=== PATIENT | female | born 1960 ===

== ENCOUNTER → 2016-10-18 | Outpatient (CLI) | payer OTHER | END | disposition home or self-care (01) | LOC: RADUSWWP 13:57 | PROVIDERS: ATTEND Family Medicine | DX: R68.89 Other general symptoms and signs (principal) | CPT/HCPCS: 93923 ==

== ENCOUNTER → 2018-12-27 | Outpatient (CLI) | payer OTHER ==
--- NOTE | 2018-12-27 09:03 | XR ---
"Cervical spine HISTORY: Neck pain 5 views of the cervical spine No comparisons There is abnormal apical increased density in the left upper lobe, there is tracheal deviation toward the left upper hemithorax. There is no significant foraminal encroachment on oblique views. Cervical vertebral bodies show prese rved height and alignment. Loss of disc height present at C4-5, there is associated spondylosis. Some facet arthropathy changes are present. Prevertebral soft tissues are normal. IMPRESSION: Possible left upper lobe mass or apical scarring. Correlate with prior chest x-rays if av ailable, consider chest CT for better evaluation. Degenerative disc disease and facet arthropathy. A Yellow level critical message alert has been initiated for Grupo Streeter MD via the Ning 36 0 | Critical Results System on 12/27/2018 9:00 AM. This message alert has been sent to Grupo Streeter MD via the preferences provided by the clinician for the receipt of Radiology Critical Findings. [facility] – [place] [id number]."
== END | disposition home or self-care (01) ==
LOC: RADXRMAIN 08:25
PROVIDERS: ATTEND Family Medicine
DX: M50.30 Other cervical disc degeneration, unspecified cervical region (principal); M46.92 Unspecified inflammatory spondylopathy, cervical region
CPT/HCPCS: 72050

== ENCOUNTER → 2018-12-30 | Outpatient (CLI) | payer OTHER ==
--- NOTE | 2018-12-30 16:19 | CT ---
EXAMINATION TYPE: CT chest w con DATE OF EXAM: 12/30/2018 COMPARISON: None at this location HISTORY: Abnormal cxr. CT DLP: 263 mGycm, Automated exposure control for dose reduction was used. CONTRAST: Performed injected with 100 mL of Isovue M300. TECHNIQUE: Axial images were obtained at 5 mm thick sections. Reconstructed images are reviewed on [employer] computer in the coronal plane. FINDINGS: Portion of the thyroid visualized is normal. Mediastinum shifted to the left. Large apical thickening is present on the left. Some cavitation may be present in the anterior left. Some scarring appears to be in the right apex. Correlate with the surgical history. A suspicious spiculated density is in the left upper lung field measuring 0.5 cm. Series 5 image 47. Granulomas at the left lung base. No enlarged mediastinal or hilar adenopathy is evident. The ascending aorta diameter at the level o f the main pulmonary artery is 3.0 cm. The main pulmonary artery diameter at the bifurcation is 2.[address] sections are obtained through the upper abdomen. Right kidney is not within the field of v iew. IMPRESSIONS: 1. Left apical thickening with apparent cavitation. Spiculated 0.5 cm nodules in the left upper lung field. Findings are suspicious for neoplasm. Additional workup is recommended. 2. Suspected left apical mass is contributed to mediastinal shift to the left. Correlate with patient 's surgical history.
== END | disposition home or self-care (01) ==
LOC: RADCTMAIN 13:50
PROVIDERS: ATTEND Family Medicine
DX: J98.4 Other disorders of lung (principal); R91.1 Solitary pulmonary nodule
CPT/HCPCS: 71260; Q9967

== ENCOUNTER → 2019-01-10 | Outpatient (CLI) | payer OTHER ==
--- NOTE | 2019-01-13 07:44 | PE ---
EXAMINATION TYPE: PET CT fusion skull to thigh DATE OF EXAM: 01/10/2019 COMPARISON: CT chest 12/30/2018 Prior PET/CT: None HISTORY: Chest mass TECHNIQUE: Following the intravenous administration of 12.85 mCi of F-18 FDG, whole body images are performed from the skull base to the midthigh. Images are reviewed on the computer in the coronal, a xial, and sagittal planes. Reconstructed rotating images are created on independent workstation and reviewed on the computer. A localization and attenuation correction CT is performed in conjunction with the PET scan. DLP: 173.36 mGycm SCAN: Initial Blood glucose: 70 mg/dL Average Mediastinum SUV: 1.44 Average Liver SUV: 1.84 FINDINGS: NECK: No abnormal uptake THORAX: Suspicious uptake in the left apical mass is not evident. No underlying focal uptake is evide nt. No mediastinal or hilar adenopathy with increased uptake is evident. SUV value averages 1.36 ABDOMEN: No abnormal uptake PELVIS: No abnormal uptake OSSEOUS STRUCTURES: No abnormal uptake LOCALIZATION CT: Left apical masslike areas evident. There is shift the mediastinum to the left. Calc ified lymph nodes at the left hilar region. COMPARISON: Findings are stable from CT examination 12/30/2018 IMPRESSION: 1. Suspicious intense uptake to suggest progressive neoplasm is not evident. Milder uptake could sugg est an inflammatory process. Consider atypical forms such as mycobacterium avium and changes from pul monary fibrosis.
== END | disposition home or self-care (01) ==
LOC: RADPETMAIN 13:53
PROVIDERS: ATTEND Family Medicine
DX: R91.8 Other nonspecific abnormal finding of lung field (principal); R93.89 Abnormal findings on diagnostic imaging of other specified body structures; Z86.11 Personal history of tuberculosis
CPT/HCPCS: 78815; A9552

== ENCOUNTER → 2020-01-22 | Outpatient (CLI) | payer OTHER ==
[2020-01-22 17:01] LABS: Basophils % (A) 1 %; Eosinophils % (A) 0 %; HCT 39.8 % (34.0-46.0); HGB 13.1 gm/dL (11.4-16.0); Lymphocytes # (A) 1.2 k/uL (1.0-4.8); Lymphocytes % (A) 16 %; MCH 31.5 pg (25.0-35.0); MCHC 32.8 g/dL (31.0-37.0); MCV 96.2 fL (80.0-100.0); Mean Platelet Volume 7.4; Monocytes # (A) 0.3 k/uL (0-1.0); Monocytes % (A) 3 %; Neutrophils % (A) 79 %; Platelet Count 209 k/uL (150-450); RBC 4.14 m/uL (3.80-5.40); RDW 12.4 % (11.5-15.5); WBC 7.6 k/uL (3.8-10.6)
--- NOTE | 2020-01-22 19:41 | XR ---
PROCEDURE: XR sinus - 4V DATE AND TIME: 01/22/2020 4:51 PM CLINICAL INDICATION: PHH; R51.9; ears feel full, left greater than right. TECHNIQUE: Ruiz AP view, Jackson AP view, submentovertex, and lateral soft tissue technique images were obtained. COMPARISON: None FINDINGS: The sphenoid, frontal, ethmoid, and maxillary sinuses are clear. There is no focal skeletal findings. No focal soft tissue finding. No incidental findings. IMPRESSION: Negative examination.
[2020-01-23 01:20] LABS: African American GFR (CKD) 117.3 (60.0-200.0); Albumin 4.5 g/dL (3.80-4.90); Albumin/Globulin Ratio 1.8 (1.60-3.17); Anion Gap 9.1 mmol/L (4.00-12.00); Carbon Dioxide 26.9 mmol/L (21.6-31.8); Globulin 2.5 g/dL (1.6-3.3); Non-African American GFR(CKD) 101.2 (60.0-200.0); Potassium 3.9 mmol/L (3.5-5.5); Total Bilirubin 0.3 mg/dL (0.3-1.2)
== END | disposition home or self-care (01) ==
LOC: LABWHC1 16:27
PROVIDERS: ATTEND Family Medicine
DX: R51.9 Headache, unspecified (principal); R53.83 Other fatigue
CPT/HCPCS: 36415; 70220; 80053; 84443; 85025

== ENCOUNTER 2020-05-27 12:15 | Emergency (ER) | payer OTHER ==
[2020-05-27 12:52] VITALS: RESP 18; TEMP 98
[2020-05-27] MEDS ORDERED: SODIUM CHLORIDE 0.9% 1,000 ML IV STA (13:18)
[2020-05-27] MEDS ORDERED: ONDANSETRON 4 MG/2 ML VIAL IVP STA (13:18)
--- NOTE | 2020-05-27 13:20 | ED ---
Nausea/Vomiting/Diarrhea HPI - General Chief complaint: Nausea/Vomiting/Diarrhea Stated complaint: Covid Vaccine reaction, vomiting Time Seen by Provider: 05/27/20 13:12 Source: patient, RN notes reviewed Mode of arrival: ambulatory Limitations: no limitations - History of Present Illness Initial comments: She is a 60-year-old female that presents to emergency department with a three- day history of nausea and vomiting. She notes that she got the [employer] Covid vaccine prior to the nausea and vomiting. She had 4 bouts of vomiting over the last 3 days. She is currently a little bit nauseous. He noted that her emesis was nonbloody and nonbilious. She is able to hold food down and water mostly. She denied any pain or other complaints. He denied any chest pain shortness of breath diarrhea constipation fever fatigue chills weakness numbness tingling. - Related Data Allergies Allergy/AdvReac Type Severity Reaction Status Date / Time amoxicillin Allergy Rash/Hives Verified 05/27/20 12:52 Review of Systems ROS Statement: Those systems with pertinent positive or pertinent negative responses have been documented in the HPI. ROS Other: All systems not noted in ROS Statement are negative. Past Medical History Past Medical History: No Reported History History of Any Multi-Drug Resistant Organisms: None Reported Past Surgical History: No Surgical Hx Reported Past Psychological History: No Psychological Hx Reported Smoking Status: Never smoker Past Alcohol Use History: None Reported Past Drug Use History: None Reported General Exam Limitations: no limitations General appearance: alert, in no apparent distress Head exam: Present: atraumatic, normocephalic, normal inspection Eye exam: Present: normal appearance, PERRL, EOMI. Absent: scleral icterus, conjunctival injection, periorbital swelling ENT exam: Present: normal exam, mucous membranes moist Neck exam: Present: normal inspection. Absent: tenderness, meningismus, lymphadenopathy Respiratory exam: Present: normal lung sounds bilaterally. Absent: respiratory distress, wheezes, rales, rhonchi, stridor Cardiovascular Exam: Present: regular rate, normal rhythm, normal heart sounds. Absent: systolic murmur, diastolic murmur, rubs, gallop, clicks GI/Abdominal exam: Present: soft, normal bowel sounds. Absent: distended, tenderness, guarding, rebound, rigid Extremities exam: Present: normal inspection, full ROM, normal capillary refill. Absent: tenderness, pedal edema, joint swelling, calf tenderness Neurological exam: Present: alert, oriented X3, CN II-XII intact Psychiatric exam: Present: normal affect, normal mood Skin exam: Present: warm, dry, intact, normal color. Absent: rash Course Vital Signs 05/27/20 05/27/20 12:48 14:51 Temperature 98.0 F Pulse Rate 78 66 Respiratory 18 18 Rate Blood Pressure 146/79 123/72 O2 Sat by Pulse 100 100 Oximetry Medical Decision Making - Medical Decision Making 52-year-old female complaining of 3 day history of nausea and vomiting. Basic labs, 4 mg of Zofran ordered. Labs unremarkable. Case discussed with Dr. Torres, decided the patient could discharge home with conservative management. - Lab Data Result diagrams: 05/27/20 13:39 05/27/20 13:39 Lab Results 05/27/20 05/27/20 05/27/20 Range/Units 13:39 13:39 13:39 WBC 5.9 (3.8-10.6) k/uL RBC 4.23 (3.80-5.40) m/uL Hgb 13.2 (11.4-16.0) gm/dL Hct 38.7 (34.0-46.0) % MCV 91.6 (80.0-100.0) fL MCH 31.3 (25.0-35.0) pg MCHC 34.1 (31.0-37.0) g/dL RDW 12.2 (11.5-15.5) % Plt Count 264 (150-450) k/uL MPV 6.9 Neutrophils % 61 % Lymphocytes % 27 % Monocytes % 6 % Eosinophils % 3 % Basophils % 1 % Neutrophils # 3.6 (1.3-7.7) k/uL Lymphocytes # 1.6 (1.0-4.8) k/uL Monocytes # 0.3 (0-1.0) k/uL Eosinophils # 0.2 (0-0.7) k/uL Basophils # 0.1 (0-0.2) k/uL Sodium 142 (137-145) mmol/L Potassium 4.2 (3.5-5.1) mmol/L Chloride 103 (98-107) mmol/L Carbon Dioxide 29 (22-30) mmol/L Anion Gap 10 mmol/L BUN 15 (7-17) mg/dL Creatinine 0.50 L (0.52-1.04) mg/dL Est GFR (CKD-EPI)AfAm >90 (>60 ml/min/1.73 sqM) Est GFR (CKD-EPI)NonAf >90 (>60 ml/min/1.73 sqM) Glucose 95 (74-99) mg/dL Calcium 9.3 (8.4-10.2) mg/dL Total Bilirubin 0.5 (0.2-1.3) mg/dL AST 31 (14-36) U/L ALT 18 (4-34) U/L Alkaline Phosphatase 62 (38-126) U/L Total Protein 8.2 (6.3-8.2) g/dL Albumin 4.8 (3.5-5.0) g/dL Urine Color Light Yellow Urine Appearance Turbid H (Clear) Urine pH 8.0 (5.0-8.0) Ur Specific [place] 1.012 (1.001-1.035) Urine Protein Negative (Negative) Urine Glucose (UA) Negative (Negative) Urine Ketones Negative (Negative) Urine Blood Negative (Negative) Urine Nitrite Negative (Negative) Urine Bilirubin Negative (Negative) Urine Urobilinogen <2.0 (<2.0) mg/dL Ur Leukocyte Esterase Large H (Negative) Urine WBC 19 H (0-5) /hpf Ur Squamous Epith Cells 8 H (0-4) /hpf Amorphous Sediment Occasional H (None) /hpf Urine Bacteria Rare H (None) /hpf Urine Mucus Rare H (None) /hpf Disposition Clinical Impression: Dehydration, Nausea & vomiting Disposition: HOME SELF-CARE Condition: Stable Instructions (If sedation given, give patient instructions): Acute Nausea and Vomiting (ED) Additional Instructions: Please return to the Emergency Department if symptoms worsen or any other concerns. Follow-up with primary care in 2-5 days. Continue to increase oral fluid intake and eat as tolerated. Is patient prescribed a controlled substance at d/c from ED?: No Referrals: Grupo Streeter MD [Primary Care Provider] - 1-2 days Time of Disposition: 15:07
[2020-05-27 13:57] LABS: Basophils # (A) 0.1 k/uL (0-0.2); Basophils % (A) 1 %; Eosinophils # (A) 0.2 k/uL (0-0.7); Eosinophils % (A) 3 %; HCT 38.7 % (34.0-46.0); HGB 13.2 gm/dL (11.4-16.0); Lymphocytes # (A) 1.6 k/uL (1.0-4.8); Lymphocytes % (A) 27 %; MCH 31.3 pg (25.0-35.0); MCHC 34.1 g/dL (31.0-37.0); MCV 91.6 fL (80.0-100.0); Mean Platelet Volume 6.9; Monocytes # (A) 0.3 k/uL (0-1.0); Monocytes % (A) 6 %; Neutrophils # (A) 3.6 k/uL (1.3-7.7); Neutrophils % (A) 61 %; Platelet Count 264 k/uL (150-450); RBC 4.23 m/uL (3.80-5.40); RDW 12.2 % (11.5-15.5); WBC 5.9 k/uL (3.8-10.6)
[2020-05-27 14:12] LABS: ALT 18 U/L (4-34); AST 31 U/L (14-36); African American GFR (CKD) >90 (>60 ml/min/1.73 sqM); Albumin 4.8 g/dL (3.5-5.0); Alkaline Phosphatase 62 U/L (38-126); Anion Gap 10 mmol/L; Blood Urea Nitrogen 15 mg/dL (7-17); Calcium 9.3 mg/dL (8.4-10.2); Carbon Dioxide 29 mmol/L (22-30); Chloride 103 mmol/L (98-107); Glucose 95 mg/dL (74-99); Non-African American GFR(CKD) >90 (>60 ml/min/1.73 sqM); Sodium 142 mmol/L (137-145); Total Bilirubin 0.5 mg/dL (0.2-1.3); Total Protein 8.2 g/dL (6.3-8.2)
[2020-05-27 14:20] LABS: Potassium 4.2 mmol/L (3.5-5.1)
[2020-05-27 14:22] LABS: Amorphous Sediment,Urine Occasional /hpf; Appearance,Urine Turbid (Clear); Bacteria,Urine Rare /hpf; Bilirubin,Urine Negative (Negative); Blood,Urine Negative (Negative); Color,Urine Light Yellow; Glucose,Urine (UA) Negative (Negative); Ketones,Urine Negative (Negative); Leukocyte Esterase,Urine Large (Negative); Mucus,Urine Rare /hpf; Nitrite,Urine Negative (Negative); Protein,Urine Negative (Negative); Specific Gravity,Urine 1.012 (1.001-1.035); Squamous Epithelial Cell,Urine 8 /hpf (0-4); Urobilinogen,Urine <2.0 mg/dL (<2.0); WBC,Urine 19 /hpf (0-5)
[2020-05-27 14:52] VITALS: BP 123/72; PULSE 66
[2020-05-27] MEDS ORDERED: ONDANSETRON 4 MG ODT STARTER PACK 2 TAB BTL PO STA (15:06)
== END 2020-05-27 15:16 | disposition home or self-care (01) ==
LOC: EC 12:15
DX: E86.0 Dehydration (principal); R11.2 Nausea with vomiting, unspecified
CPT/HCPCS: 36415; 80053; 85025; 81001; 99284; 96374; 96361; J2405

== ENCOUNTER → 2020-07-12 | Outpatient (CLI) | payer OTHER ==
--- NOTE | 2020-07-12 17:02 | XR ---
EXAMINATION TYPE: XR chest 2V DATE OF EXAM: 07/12/2020 COMPARISON: CT chest 12/30/2018 HISTORY: R07.9, R06.02, shortness of breath TECHNIQUE: Frontal and lateral views of the chest are obtained. FINDINGS: Abnormal attenuation at the left lung apex is a chronic finding, there is volume loss, ten ting of the left hemidiaphragm similar to prior chest CT. No evident pneumothorax or pleural effusion . There is mediastinal shift into the left hemithorax. Aorta is obscured. Heart size is within normal limits. IMPRESSION: Difficult to exclude pneumonia.
== END | disposition home or self-care (01) ==
LOC: RADXRMAIN 15:58
PROVIDERS: ATTEND Internal Medicine Pulmonary Disease
DX: R06.02 Shortness of breath (principal); R07.9 Chest pain, unspecified; Z91.041 Radiographic dye allergy status
CPT/HCPCS: 71046

== ENCOUNTER 2021-04-07 08:10 | Day surgery (SDC) | payer OTHER ==
[2021-04-04 14:51] VITALS: BMI 20.3
[2021-04-07] MEDS ORDERED: SODIUM CHLORIDE 0.9% 500 ML 500 ML IV ONE (08:22)
[2021-04-07 08:35] VITALS: RESP 16; TEMP 98
[2021-04-07] MEDS ORDERED: fentaNYL (PF) 50 MCG/ML 2 ML AMP ONE (10:37)
[2021-04-07] MEDS: BENZOCAINE SPRAY 1 CAN TOPICAL ONE ×2 (10:57→10:58)
[2021-04-07] MEDS ORDERED: MIDAZOLAM 2 MG/2 ML VIAL IV ONE ×2 (11:01→11:09)
[2021-04-07] MEDS ORDERED: fentaNYL (PF) 50 MCG/ML 2 ML AMP IV ONE (11:01)
--- NOTE | 2021-04-07 12:35 | ECHOT ---
TRANSESOPHAGEAL ECHOCARDIOGRAM INDICATION: Mitral regurgitation. PROCEDURE NOTE: After obtaining informed consent, transesophageal echocardiogram is performed in left lateral position using an Omniplane probe. Local and IV sedation were obtained using Xylocaine spray, intravenous Versed and fentanyl. Total sedation time was 8 minutes. Patient tolerated the procedure well without any obvious immediate complications. She received 3 mg of Versed and 50 mcg of fentanyl. She had 2D, M-mode, color Doppler spectral analysis. FINDINGS: 1. Left atrium appears severely enlarged. 2. Right atrium and right ventricle seen within normal limits. 3. Left ventricle has normal size and systolic function. 4. Mitral valve appears anatomically normal. There is moderate central mitral regurgitation noted. There is mild tricuspid regurgitation noted. Aortic valve is a 3-leaflet valve. There is no evidence of aortic stenosis or regurgitation. 5. Aortic root appears normal. CONCLUSIONS: 1. Moderate central mitral regurgitation. 2. Severe enlargement of left atrium. MMODL / IJN: [id number] /
[2021-04-07 17:17] VITALS: BP 137/69; PULSE 73
== END 2021-04-07 12:43 | disposition home or self-care (01) ==
LOC: CATHCVL 08:10
PROVIDERS: ATTEND Internal Medicine Cardiovascular Disease
DX: I34.0 Nonrheumatic mitral (valve) insufficiency (principal); Z20.822 Contact with and (suspected) exposure to COVID-19; I51.7 Cardiomegaly
CPT/HCPCS: 93312; 93320; 93325; 87635; J2250; J3010

== ENCOUNTER → 2024-01-23 | Outpatient (CLI) | payer BC ==
--- NOTE | 2024-01-23 09:27 | XR ---
EXAMINATION TYPE: XR chest 2V DATE OF EXAM: 01/23/2024 COMPARISON: 07/12/2020 CLINICAL INDICATION: Female, 63 years old with history of R06.02SHORTNESS OF BREATH J45.909 UNSPECIFI ED ASTH; , TECHNIQUE: XR chest 2V views of the chest. FINDINGS: There is volume loss on the left with left apical pleural thickening and cystic changes stable from p rior exam. Right lung clear. Whether apical pleural thickening. Underlying emphysematous changes. Hea rt size stable. Osseous structures intact. Left upper lobe calcifications are noted. Sclerotic densit y proximal right humerus likely related to either bone island or bone infarct. Tiny chondroid lesion not excluded. There is a right apical nodular 1 cm density. IMPRESSION: 1. Stable left apical consolidation and cystic changes stable from prior exam of 2020. 2. 1 cm nodular density overlying the clavicle and the right lung apex could be related to superimpos ed structures. A right apical 1 cm nodule not excluded. Recommend follow-up apical lordotic view of t he chest. [facility], , 01/23/2024 9:25 AM
== END | disposition home or self-care (01) ==
LOC: RADXRMAIN 09:01
PROVIDERS: ATTEND Internal Medicine
DX: J45.909 Unspecified asthma, uncomplicated (principal); R91.8 Other nonspecific abnormal finding of lung field
CPT/HCPCS: 71046

== ENCOUNTER → 2024-03-06 | Outpatient (CLI) | payer BC ==
--- NOTE | 2024-03-06 12:28 | CT ---
CT thorax with contrast HISTORY: Abnormal chest x-ray. History of asthma. COMPARISON: 12/30/2018 TECHNIQUE: Multiple axial images are obtained through the thorax following uneventful administration of IV contrast. FINDINGS: There is marked volume loss on the left with shift of the mediastinum to the left. There is stable pl eural-parenchymal scarring in the left lung apex with multiple tubular air-filled structures possibly marked bronchiectasis. There is a stable spiculated 8-9 mm nodule in the left upper lobe. There is s table mild interstitial scarring in the left lung base. There is stable mild scattered interstitial scarring in the right upper lobe. The great vessels and chest are normal and there is no mediastinal, hilar or axillary adenopathy. Limited scanning through the upper abdomen reveals no gross abnormality. No focal osseous lesions are seen. IMPRESSION: 1. Stable marked chronic changes with marked volume loss in the left lung as described above. 2. No acute cardiopulmonary disease. 3. No significant interval change. [facility], Workstation: GIOVANNA 03/06/2024 12:25 PM
--- NOTE | 2024-03-06 14:33 | BD ---
EXAMINATION TYPE: Axial Bone Density DATE OF EXAM: 03/06/2024 CLINICAL HISTORY: 63 years old Female. ICD-10 CODE: Z78.0 ASYMPTOMATIC MENOPAUSAL STA , Additional History: Height: 59 Weight: 97 FRAX RISK QUESTIONS: Family History (Parent hip fracture): yes History of Fracture in Adulthood: no Secondary Osteoporosis: no RISK FACTORS HISTORY OF: Surgery to Spine/Hip(right/left)/Wrist (right/left): no MEDICATIONS: Thyroid Medications: no Osteoporosis Medications: no EXAM MEASUREMENTS: Bone mineral densitometry was performed using the [employer] System. Bone mineral density as measured about the Lumbar spine is: ----- L1-L4(G/cm2): 0.925 T Score Values are as follows: ----- L1: -2.5 ----- L2: -2.2 ----- L3: -2.3 ----- L4: -1.7 ----- L1-L4: -2.1 Z Score Values are as follows: ----- L1: -0.5 ----- L2: -0.1 ----- L3: -0.3 ----- L4: 0.3 ----- L1-L4: -0.1 Bone mineral density baseline Bone mineral density about the R hip (g/cm2): 0.773 Bone mineral density about the L hip (g/cm2): 0.770 T Score values are as follows: -----R Neck: -2.3 -----L Neck: -1.9 -----R Total: -1.9 -----L Total: -1.9 Z Score values are as follows: -----R Neck: -0.5 -----L Neck: -0.2 -----R Total: -0.3 -----L Total: -0.4 Bone mineral density baseline FRAX%s: The graph provided illustrates a 5.4% chance for a major osteoporotic fx and a 1.0% chance fo r the hips probability for fx in 10 years time. IMPRESSION: Osteopenia (T Score between -2.5 and -1). There is slightly increased risk of fracture and the patient may be considered for treatment. Re-Screen 2-5 years. NOTE: T-SCORE=SD OF THE YOUNG ADULT MEAN. [facility], , 03/06/2024 2:31 PM
== END | disposition home or self-care (01) ==
LOC: RADBDWWP 10:59
PROVIDERS: ATTEND Internal Medicine
DX: R93.89 Abnormal findings on diagnostic imaging of other specified body structures (principal); Z78.0 Asymptomatic menopausal state; M85.89 Other specified disorders of bone density and structure, multiple sites; J98.4 Other disorders of lung
CPT/HCPCS: 77080; 71260; Q9967

== ENCOUNTER → 2024-06-10 | Outpatient (CLI) | payer BC ==
--- NOTE | 2024-06-10 09:16 | MM ---
Reason for Exam: Screening (asymptomatic). Last mammogram was performed 2 year(s) and 11 month(s) ago. Patient History: Menarche at age 16. First Full-Term at age 22. Postmenopausal. Risk Values: Jessie 5 year model risk: 1.2%. NCI Lifetime model risk: 5.7%. Prior Study Comparison: 06/17/2021 Bilateral Screening Mammogram, [facility]. Tissue Density: The breasts are extremely dense, which lowers the sensitivity of mammography. Findings: Analyzed By CAD. There is no suspicious group of microcalcifications. There is a nodular density in the far outer margin the right breast best seen on BX LT. Spot compression view recommended.. Overall Assessment: Incomplete: need additional imaging evaluation, BI-RAD 0 Management: Special View Mammogram of the right breast. . Patient should continue monthly self-breast exams. A clinical breast exam by your physician is recommended on an annual basis. This exam should not preclude additional follow-up of suspicious palpable abnormalities. Note on Jessie scores and lifetime risk: 1. A Jessie score greater than 3% is considered moderate risk. If this is the case, consider specialist referral to assess eligibility for a risk reducing agent. 2. If overall lifetime risk for the development of breast cancer is 20% or higher, the patient may qualify for future screening with alternating mammogram and breast MRI. [facility], , 06/10/2024 9:13 AM. Electronically signed and approved by: Choco Dalton M.D. Radiologis
== END | disposition home or self-care (01) ==
LOC: RADMAMWWP 08:36
PROVIDERS: ATTEND Internal Medicine
DX: Z12.31 Encounter for screening mammogram for malignant neoplasm of breast (principal); R92.343 Mammographic extreme density, bilateral breasts; Z78.0 Asymptomatic menopausal state
CPT/HCPCS: 77067

== ENCOUNTER → 2024-06-19 | Outpatient (CLI) | payer BC ==
--- NOTE | 2024-06-19 10:53 | MM ---
Reason for Exam: Additional evaluation requested from abnormal screening. Last screening mammogram was performed less than 1 month ago. Patient History: Menarche at age 16. First Full-Term at age 22. Postmenopausal. Risk Values: Jessie 5 year model risk: 1.2%. NCI Lifetime model risk: 5.7%. Prior Study Comparison: 06/17/2021 Bilateral Screening Mammogram, [facility]. 06/10/2024 Bilateral MG screening mammo w CAD, [facility]. Tissue Density: Right: The breasts are extremely dense, which lowers the sensitivity of mammography. Findings: Analyzed By CAD. No persistent nodule or mass. Overall Assessment: Negative, BI-RAD 1 Management: Screening Mammogram of both breasts in 1 year. . Results were given to the patient verbally at the time of exam. Patient should continue monthly self-breast exams. A clinical breast exam by your physician is recommended on an annual basis. This exam should not preclude additional follow-up of suspicious palpable abnormalities. Note on Jessie scores and lifetime risk: 1. A Jessie score greater than 3% is considered moderate risk. If this is the case, consider specialist referral to assess eligibility for a risk reducing agent. 2. If overall lifetime risk for the development of breast cancer is 20% or higher, the patient may qualify for future screening with alternating mammogram and breast MRI. [facility], , 06/19/2024 10:50 AM. Electronically signed and approved by: Jerome Moreno M.D. Radiologis
== END | disposition home or self-care (01) ==
LOC: RADMAMWWP 08:46
PROVIDERS: ATTEND Internal Medicine
DX: R92.8 Other abnormal and inconclusive findings on diagnostic imaging of breast (principal); R92.341 Mammographic extreme density, right breast; Z78.0 Asymptomatic menopausal state
CPT/HCPCS: 77061; 77065